=== PATIENT | female | born 1985 | race Caucasian/White ===

== ENCOUNTER 2018-06-27 20:57 | Emergency (ER) | payer OTHER, MEDICAID ==
[2018-06-27] MEDS: IBUPROFEN 600 MG TAB PO (23:29)
[2018-06-27] MEDS: traMADol 50 MG TAB PO (23:54)
== END 2018-06-28 01:21 | disposition home or self-care (01) ==
LOC: FTE 20:57
DX: M79.605 Pain in left leg (principal); F17.210 Nicotine dependence, cigarettes, uncomplicated
CPT/HCPCS: 93971; 99284-25